=== PATIENT | female | born 1980 | race Caucasian/White ===

== ENCOUNTER 2019-09-26 05:15 | Emergency (ER) | payer MEDICAID ==
[~2019-09-26] VITALS: Ht 175.3 cm; Wt 93.5 kg
[~2019-09-26 05:15] MED LIST: ONDA8TAB9 PO
[2019-09-26 05:19] VITALS: BP 104/69
[2019-09-26] MEDS ORDERED: CEPH500C5 PO (05:34)
[2019-09-26] MEDS ORDERED: PHEN-786 PO (05:34)
[2019-09-26] MEDS ORDERED: cephalexin 250mg capsule PO ONE (05:35)
[2019-09-26] MEDS ORDERED: phenazopyridine 100mg tablet PO ONE (05:35)
[2019-09-26 05:54] LABS: CLARITY,URINE CLOUDY (Clear); COLOR,URINE YELLOW (Yellow)
[2019-09-26 05:55] LABS: URINE HCG NEGATIVE (NEG)
[2019-09-26 06:16] LABS: UA COLLECTION TYPE CLN CATCH MIDSTREAM
[2019-09-26 06:18] LABS: BACTERIA,URINE 2+ /HPF (Neg); MUCUS STRANDS NONE SEEN /LPF (Neg); RBC,URINE TNTC /HPF (0-2); SQUAMOUS EPITHELIAL CELL,UR FEW /LPF (FEW); WBC CLUMPS,URINE MANY /HPF (NEGATIVE); WBC,URINE TNTC /HPF (0-4)
== END 2019-09-26 06:18 | disposition home or self-care (01) ==
LOC: ER 05:16
DX: N39.0 Urinary tract infection, site not specified (principal); Z79.2 Long term (current) use of antibiotics; Z79.899 Other long term (current) drug therapy
CPT/HCPCS: 81001; 81025; 87077; 87088; 87186; 99283

== ENCOUNTER 2020-03-30 23:35 | Emergency (ER) | payer MEDICAID ==
[~2020-03-30] VITALS: Ht 175.3 cm; Wt 104.5 kg
[~2020-03-30 23:35] MED LIST changes: +CEPH500C5 PO; +PHEN-786 PO
[2020-03-31] MEDS ORDERED: normal saline 1000ML IV soln IV ONE (00:35)
[2020-03-31 00:38] LABS: CLARITY,URINE CLOUDY (Clear); COLOR,URINE YELLOW (Yellow); GLUCOSE, URINE NEGATIVE (Neg); KETONES,URINE >=80 mg/dl (Neg); LEUKOCYTE ESTERASE ,URINE LARGE (Neg); NITRITES, URINE NEGATIVE (Neg); OCCULT BLOOD,URINE TRACE-INTACT (Neg); PROTEIN,URINE 100 mg/dl (Neg); UROBILINOGEN,URINE 0.2 E.U/dL (0.2-1.0)
[2020-03-31 00:39] LABS: URINE HCG POSITIVE (NEG)
[2020-03-31 00:52] LABS: UA COLLECTION TYPE CLN CATCH MIDSTREAM
[2020-03-31 00:55] LABS: BACTERIA,URINE 2+ /HPF (Neg); RBC,URINE NONE SEEN /HPF (0-2); SQUAMOUS EPITHELIAL CELL,UR MODERATE /LPF (FEW); WBC,URINE TNTC /HPF (0-4)
[2020-03-31 00:56] LABS: WBC CLUMPS,URINE MANY /HPF (NEGATIVE)
[2020-03-31 01:01] LABS: BASOPHILS % (AUTO) 0.3 % (0-1); EOSINOPHILS % (AUTO) 0 % (0-6); HEMATOCRIT 38.3 % (35.0-45.0); LYMPHOCYTES # (AUTO) 1.1 X10'3 (1.1-4.8); LYMPHOCYTES % (AUTO) 7.9 % (21-51); MEAN CORPUSCULAR HEMOGLOBIN 29.5 PG (27.0-31.0); MEAN CORPUSCULAR VOLUME 86.6 FL (78-98); MEAN PLATELET VOLUME 7.5 FL (7.4-10.4); MONOCYTES # (AUTO) 1.3 X10'3 (0-0.9); MONOCYTES % (AUTO) 9.1 % (2-12); NEUTROPHILS # (AUTO) 11.5 X10'3 (1.8-7.7); NEUTROPHILS % (AUTO) 82.7 % (42-75); PLATELET COUNT 242 X10'3 (140-440); RED BLOOD COUNT 4.42 X10'6 (4.20-5.60); RED CELL DISTRIBUTION WIDTH 14.3 % (11.5-14.5); WHITE BLOOD COUNT 13.9 X10'3 (4.5-11.0)
[2020-03-31 01:18] LABS: ALANINE AMINOTRANSFERASE 16 U/L (12-78); ALBUMIN 2.9 G/DL (3.4-5.0); ALBUMIN/GLOBULIN RATIO 0.7 (1.1-1.5); ALKALINE PHOSPHATASE 68 IU/L (46-116); ANION GAP 10 (8-16); ASPARTATE AMINO TRANSFERASE 14 U/L (10-37); BILIRUBIN,TOTAL 0.6 MG/DL (0.1-1.0); BLOOD UREA NITROGEN 4 MG/DL (7-18); CALCIUM 8.3 MG/DL (8.5-10.1); CHLORIDE 100 MMOL/L (99-107); CREATININE 0.67 MG/DL (0.40-0.90); GLUCOSE 131 MG/DL (70-104); MAGNESIUM 1.8 MG/DL (1.5-2.4); POTASSIUM 3.3 MMOL/L (3.5-5.1); SODIUM 134 MMOL/L (135-145); TOTAL CARBON DIOXIDE 23.7 MMOL/L (24-32); TOTAL PROTEIN 7.3 G/DL (6.4-8.2); eGFR > 90 ML/MIN
[2020-03-31 01:24] LABS: PARTIAL THROMBOPLASTIN TIME 28 SECONDS (22-32)
[2020-03-31] MEDS ORDERED: acetaminophen 325mg tablet PO ONE (01:25)
[2020-03-31] MEDS ORDERED: CefTRIAXone/D5W-Rocephin 1gm 50 ML IV ONE (01:25)
[2020-03-31] MEDS ORDERED: CEPH500C5 PO (02:04)
[2020-03-31 02:21] LABS: CLARITY,URINE CLOUDY (Clear); COLOR,URINE YELLOW (Yellow); GLUCOSE, URINE NEGATIVE (Neg); KETONES,URINE >=80 mg/dl (Neg); LEUKOCYTE ESTERASE ,URINE LARGE (Neg); NITRITES, URINE POSITIVE (Neg); OCCULT BLOOD,URINE SMALL (Neg); PROTEIN,URINE 30 mg/dl (Neg); UROBILINOGEN,URINE 0.2 E.U/dL (0.2-1.0)
[2020-03-31 02:29] LABS: UA COLLECTION TYPE STRAIGHT CATH
[2020-03-31 02:31] LABS: BACTERIA,URINE 2+ /HPF (Neg); RBC,URINE NONE SEEN /HPF (0-2); WBC,URINE TNTC /HPF (0-4)
[2020-03-31 02:32] LABS: SQUAMOUS EPITHELIAL CELL,UR FEW /LPF (FEW); TRANSITIONAL EPI CELLS,URINE FEW /HPF; WBC CLUMPS,URINE MODERATE /HPF (NEGATIVE)
[2020-03-31 02:51] VITALS: BP 119/66
== END 2020-03-31 02:53 | disposition home or self-care (01) ==
LOC: ER 23:35
DX: O23.02 Infections of kidney in pregnancy, second trimester (principal); Z3A.22 22 weeks gestation of pregnancy
CPT/HCPCS: 36415; 80053; 81001; 81025; 83605; 83735; 84145; 85025; 85610; 85730; 87040; 87077; 87088; 87186; 96365; 99284; J0696; J7030

== ENCOUNTER 2024-09-27 11:11 | Emergency (ER) | payer MEDICAID ==
[~2024-09-27] VITALS: Ht 175.3 cm; Wt 81.8 kg
[~2024-09-27 11:11] MED LIST changes: -CEPH500C5 PO
[2024-09-27 11:31] VITALS: BP 134/97; PULSE 94; RESP 17; TEMP 98.3; O2SAT 97
[2024-09-27] MEDS ORDERED: CLIN-97 PO (13:17)
== END 2024-09-27 13:24 | disposition home or self-care (01) ==
LOC: ER 11:11
DX: K02.9 Dental caries, unspecified (principal); Z79.899 Other long term (current) drug therapy
CPT/HCPCS: 99283

== ENCOUNTER 2025-05-31 09:11 | Outpatient (CLI) | payer MEDICAID ==
[~2025-05-31 09:11] MED LIST changes: +CLIN-97 PO
--- NOTE | 2025-05-31 10:14 | RADIOLOGY REPORT ---
CLINICAL HISTORY: Left knee pain. COMPARISON: None TECHNIQUE: Multisequence multiplanar MRI images of the left knee were obtained without contrast. FINDINGS: Cruciate ligaments: ACL and PCL are intact. Extensor mechanism: Quadriceps mechanism and patellar tendon are intact. Mild edema and small amount of fluid in the prepatellar and superficial infrapatellar bursae Collateral ligaments: Mild edema and trace fluid along the superficial fibers of the medial collatera l ligament, consistent with a mild grade 1 sprain in the appropriate clinical setting. No tear. Mild edema also noted along the proximal fibers of the lateral collateral ligament, possible sprain. Menisci: No significant degeneration. No evidence of meniscal tear. Cartilage: Deep chondral fissuring / fibrillation and areas of full-thickness chondral loss in the la teral patellar facet and median ridge of the patella. Mild subchondral cystic change in the patella. Chondral thinning, fraying, and mild fissuring of the medial and lateral compartments. Bones: No acute fracture or focal marrow contusion. Joint fluid: Moderate joint effusion. Other: Popliteal cyst measures up to 6.4 cm in greatest craniocaudal dimension with edema and fluid a long its caudal aspect coursing along adjacent fascial planes, likely leakage of fluid from the cyst. IMPRESSION: 1. Findings consistent with mild sprains of the medial and lateral collateral ligaments. 2. 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 3. Mild prepatellar and superficial infrapatellar bursitis. 4. Moderate joint effusion. 5. Popliteal cyst with evidence of leakage of fluid from the cyst along its caudal aspect.
== END 2025-05-31 23:59 | disposition home or self-care (01) ==
LOC: MRI02 09:11
PROVIDERS: ATTEND Student in an Organized Health Care Education/Training Program
DX: M22.42 Chondromalacia patellae, left knee (principal); M25.562 Pain in left knee; M75.52 Bursitis of left shoulder; M71.22 Synovial cyst of popliteal space [Baker], left knee; M25.462 Effusion, left knee
CPT/HCPCS: 73721